=== PATIENT | male | born 1990 | race Caucasian/White ===

== ENCOUNTER 2016-11-04 07:10 | Emergency (ER) | payer SELFPAY ==
[2016-11-04 07:14] VITALS: RESP 16
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
--- NOTE | 2016-11-04 07:47 | XR ---
EXAMINATION TYPE: XR knee limited RT DATE OF EXAM: 11/04/2016 7:43 AM COMPARISON: NONE HISTORY: Pain TECHNIQUE: 2 views were obtained. FINDINGS: Joint spaces are preserved. Osseous structures are intact. No acute fracture seen. Remote tibial t ubercle avulsion fracture suspected. IMPRESSION: 1. No acute fracture or dislocation.
[2016-11-04 08:35] VITALS: BP 124/58; PULSE 50; TEMP 97.4
== END 2016-11-04 08:35 | disposition home or self-care (01) ==
LOC: EC 07:10
DX: S89.91XA Unspecified injury of right lower leg, initial encounter (principal); M76.891 Other specified enthesopathies of right lower limb, excluding foot; Z87.891 Personal history of nicotine dependence; Z88.0 Allergy status to penicillin; Z98.890 Other specified postprocedural states; X58.XXXA Exposure to other specified factors, initial encounter
CPT/HCPCS: 99283; 73560; L1830

== ENCOUNTER 2018-12-29 03:56 | Emergency (ER) | payer OTHER ==
[2018-12-29 04:04] VITALS: BP 133/87; RESP 16; TEMP 97.7
[2018-12-29] MEDS ORDERED: IPRATROPIUM-ALBUTEROL 3 ML NEB INHALATION STA (04:39)
[2018-12-29] MEDS ORDERED: predniSONE 20 MG TAB PO STA (04:39)
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
[2018-12-29 04:53] VITALS: PULSE 80
== END 2018-12-29 05:04 | disposition home or self-care (01) ==
LOC: EC 03:56
DX: J45.901 Unspecified asthma with (acute) exacerbation (principal); Z88.0 Allergy status to penicillin; Z91.013 Allergy to seafood; Z87.891 Personal history of nicotine dependence
CPT/HCPCS: 94640; 99284; J7512

== ENCOUNTER 2019-05-15 09:06 | Emergency (ER) | payer OTHER ==
[2019-05-15] MEDS ORDERED: IBUPROFEN 600 MG TAB PO STA (09:48)
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
--- NOTE | 2019-05-15 10:21 | XR ---
EXAMINATION TYPE: XR ankle complete 3 views RT, XR foot complete 3 views RT DATE OF EXAM: 05/15/2019 COMPARISON: NONE HISTORY: 29-year-old male with pain and swelling laterally after rolling ankle FINDINGS: Right ankle: There are a few small cystic densities below the lateral malleolus measuring 5 mm and 2 mm. No well-d efined donor site is identified. Ankle mortise otherwise appears congruent. Talar dome is intact. Cor ticated appearing ossific density anteriorly measures 5 mm. Small delineation to the Achilles tendon. Right foot: Type II accessory navicular. There is subtle lucency seen at the base of the fifth metatarsal on the AP and oblique views. IMPRESSION: 1. Right ankle: Age indeterminate bone fragments below the lateral malleolus suggesting avulsion frac tures mediated by the lateral ligamentous complex. Probably chronic. Correlate for any pinpoint tend erness here to exclude acute fractures here. 2. Right foot: Findings suspicious for a nondisplaced fracture at the base of the fifth metatarsal. 3. Right foot: Type II accessory navicular.
[2019-05-15 10:55] VITALS: BP 128/91; PULSE 60; RESP 12; TEMP 97.6
== END 2019-05-15 10:50 | disposition home or self-care (01) ==
LOC: EC 09:06
DX: S82.61XA Displaced fracture of lateral malleolus of right fibula, initial encounter for closed fracture (principal); S92.351A Displaced fracture of fifth metatarsal bone, right foot, initial encounter for closed fracture; Z87.891 Personal history of nicotine dependence; Z88.0 Allergy status to penicillin; Z91.013 Allergy to seafood; Z79.1 Long term (current) use of non-steroidal anti-inflammatories (NSAID); X50.9XXA Other and unspecified overexertion or strenuous movements or postures, initial encounter; Y93.67 Activity, basketball
CPT/HCPCS: 29515; 99283

== ENCOUNTER 2019-12-18 09:40 | Emergency (ER) | payer OTHER ==
[2019-12-18 09:55] VITALS: BP 132/82; RESP 18; TEMP 97.9
[2019-12-18] MEDS ORDERED: IPRATROPIUM-ALBUTEROL 3 ML NEB INHALATION STA (10:02)
[2019-12-18] MEDS ORDERED: predniSONE 50 MG TAB PO STA (10:03)
--- NOTE | 2019-12-18 10:16 | XR ---
EXAMINATION TYPE: XR chest 2V DATE OF EXAM: 12/18/2019 COMPARISON: 02/14/2016 HISTORY: Shortness of breath. History of asthma. TECHNIQUE: Frontal and lateral views of the chest are obtained. FINDINGS: There is no focal air space opacity, pleural effusion, or pneumothorax seen. Pulmonary art eries are prominent in size. Very mild peribronchial cuffing along the bronchus intermedius. The car diac silhouette size is within normal limits. The osseous structures are intact. IMPRESSION: 1. Very mild peribronchial cuffing along the bronchus intermedius. Consider bronchitis or reactive ai rway disease. 2. No focal consolidation to suggest pneumonia. 3. Prominence of the main pulmonary arteries, which may clinically correlate with pulmonary arterial hypertension.
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
[2019-12-18 10:29] VITALS: PULSE 60
== END 2019-12-18 10:53 | disposition home or self-care (01) ==
LOC: EC 09:40
DX: J45.901 Unspecified asthma with (acute) exacerbation (principal); Z88.0 Allergy status to penicillin; Z91.013 Allergy to seafood; Z87.891 Personal history of nicotine dependence
CPT/HCPCS: 99285; 94640; 71046; J7512

== ENCOUNTER 2020-01-01 20:27 | Emergency (ER) | payer OTHER ==
[2020-01-01 20:31] VITALS: BP 148/94; PULSE 70; RESP 20; TEMP 98.6
[2020-01-01] MEDS ORDERED: NEOMYCIN-POLYMYXIN-HC (3.5-10,000-10 MG) OTIC DROPS 10 ML BTL LEFT EAR STA (20:45)
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
== END 2020-01-01 21:12 | disposition home or self-care (01) ==
LOC: EC 20:27
DX: H60.92 Unspecified otitis externa, left ear (principal); J45.909 Unspecified asthma, uncomplicated; Z88.0 Allergy status to penicillin; Z91.013 Allergy to seafood; Z87.891 Personal history of nicotine dependence
CPT/HCPCS: 99282

== ENCOUNTER 2020-01-12 00:50 | Emergency (ER) | payer OTHER ==
[2020-01-12 01:00] VITALS: BP 143/83; PULSE 81; RESP 18; TEMP 98.5
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
== END 2020-01-12 01:17 | disposition home or self-care (01) ==
LOC: EC 00:50
DX: H60.92 Unspecified otitis externa, left ear (principal); J45.909 Unspecified asthma, uncomplicated; Z79.51 Long term (current) use of inhaled steroids; Z79.1 Long term (current) use of non-steroidal anti-inflammatories (NSAID); Z88.0 Allergy status to penicillin; Z91.013 Allergy to seafood; Z87.891 Personal history of nicotine dependence
CPT/HCPCS: 99282

== ENCOUNTER 2021-06-07 04:10 | Emergency (ER) | payer BC, OTHER ==
[2021-06-07 04:42] VITALS: BP 137/92; PULSE 61; RESP 20; TEMP 97.8
[2021-06-07] MEDS ORDERED: predniSONE 20 MG TAB PO STA (04:53)
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
== END 2021-06-07 05:05 | disposition home or self-care (01) ==
LOC: EC 04:10
DX: J45.901 Unspecified asthma with (acute) exacerbation (principal); Z87.891 Personal history of nicotine dependence; Z88.0 Allergy status to penicillin; Z91.013 Allergy to seafood
CPT/HCPCS: 99284; J7512

== ENCOUNTER 2021-09-12 06:13 | Emergency (ER) | payer BC, OTHER ==
[2021-09-12 06:27] VITALS: BP 146/98; PULSE 61; RESP 16; TEMP 97.8
--- NOTE | 2021-09-12 06:51 | XR ---
EXAMINATION TYPE: XR foot complete RT DATE OF EXAM: 09/12/2021 CLINICAL HISTORY: Pain worse laterally. TECHNIQUE: Frontal, lateral, and oblique images of the right foot are obtained. COMPARISON: Prior right foot x-ray May 15, 2019 FINDINGS: There is no acute fracture/dislocation evident in the right foot. The joint spaces in the right foot appear within normal limits. Unfused apophysis or accessory ossicle medial base of navicu lar bone redemonstrated. The overlying soft tissue appears unremarkable. IMPRESSION: As above. No acute findings are evident.
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
== END 2021-09-12 07:57 | disposition home or self-care (01) ==
LOC: EC 06:13
DX: S93.601A Unspecified sprain of right foot, initial encounter (principal); M72.2 Plantar fascial fibromatosis; J45.909 Unspecified asthma, uncomplicated; Z87.891 Personal history of nicotine dependence; Z88.0 Allergy status to penicillin; Z91.013 Allergy to seafood; X58.XXXA Exposure to other specified factors, initial encounter; Y99.0 Civilian activity done for income or pay
CPT/HCPCS: 99283

== ENCOUNTER 2021-10-21 08:55 | Emergency (ER) | payer BC ==
[2021-10-21] MEDS ORDERED: ACETAMINOPHEN TAB 500 MG TAB PO STA (09:09)
[2021-10-21] MEDS ORDERED: ONDANSETRON ODT 4 MG TAB PO STA (09:25)
[2021-10-21] MEDS ORDERED: ONDANSETRON 4 MG ODT STARTER PACK 2 TAB BTL PO STA (09:25)
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
[2021-10-21 10:22] VITALS: BP 122/80; PULSE 94; RESP 18; TEMP 98.4
== END 2021-10-21 10:27 | disposition home or self-care (01) ==
LOC: EC 08:55
DX: U07.1 COVID-19 (principal); J45.909 Unspecified asthma, uncomplicated; Z87.891 Personal history of nicotine dependence; Z88.0 Allergy status to penicillin; Z91.013 Allergy to seafood
CPT/HCPCS: 87635; 99284; S0119

== ENCOUNTER 2022-01-27 06:04 | Emergency (ER) | payer BC, OTHER ==
[2022-01-27 06:17] VITALS: BP 135/88; PULSE 66; RESP 18; TEMP 97.8
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
== END 2022-01-27 07:05 | disposition home or self-care (01) ==
LOC: EC 06:04
DX: J98.01 Acute bronchospasm (principal); Z87.891 Personal history of nicotine dependence; Z88.0 Allergy status to penicillin
CPT/HCPCS: 99284

== ENCOUNTER 2022-04-16 06:03 | Emergency (ER) | payer BC, OTHER ==
[2022-04-16 06:33] VITALS: BP 123/87; TEMP 97.9
[2022-04-16] MEDS ORDERED: IPRATROPIUM-ALBUTEROL 3 ML NEB INHALATION STA (06:47)
[2022-04-16] MEDS ORDERED: predniSONE 50 MG TAB PO STA (06:49)
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
--- NOTE | 2022-04-16 07:17 | XR ---
EXAMINATION TYPE: XR chest 2V DATE OF EXAM: 04/16/2022 COMPARISON: 12/18/2019 HISTORY: 31-year-old male with wheezing and shortness of breath TECHNIQUE: PA and lateral views FINDINGS: The cardiomediastinal silhouette, aorta, and pulmonary vasculature are within normal limits. Lungs an d pleural spaces are clear. IMPRESSION: No acute cardiopulmonary process.
[2022-04-16 07:52] VITALS: PULSE 78; RESP 16
== END 2022-04-16 07:52 | disposition home or self-care (01) ==
LOC: EC 06:03
DX: J45.901 Unspecified asthma with (acute) exacerbation (principal); Z87.891 Personal history of nicotine dependence; Z79.51 Long term (current) use of inhaled steroids
CPT/HCPCS: 94640; 87502; 87635; 71046; 99285; J7512

== ENCOUNTER 2022-12-28 07:36 | Emergency (ER) | payer BC, OTHER ==
[2022-12-28] MEDS ORDERED: IBUPROFEN 600 MG TAB PO STA (07:54)
[2022-12-28] MEDS ORDERED: ONDANSETRON ODT 4 MG TAB PO STA (07:54)
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
[2022-12-28 09:19] VITALS: BP 130/83; PULSE 83; TEMP 97.9
[2022-12-28 09:21] VITALS: RESP 18
== END 2022-12-28 09:18 | disposition home or self-care (01) ==
LOC: EC 07:36
DX: U07.1 COVID-19 (principal); J45.909 Unspecified asthma, uncomplicated; Z79.899 Other long term (current) drug therapy; Z87.891 Personal history of nicotine dependence; Z88.0 Allergy status to penicillin; Z91.018 Allergy to other foods; Z20.822 Contact with and (suspected) exposure to COVID-19
CPT/HCPCS: 87502; 87635; 99283

== ENCOUNTER 2025-02-13 08:51 | Emergency (ER) | payer BC, OTHER ==
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
[2025-02-13] MEDS: methylPREDNISolone SOD SUCCI 125 MG/2 ML VIAL IM ONE (09:24)
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
[2025-02-13] MEDS: IPRATROPIUM-ALBUTEROL 3 ML NEB INHALATION STA (10:14)
[2025-02-13 11:07] VITALS: BP 147/69; PULSE 77; RESP 16; TEMP 98
== END 2025-02-13 11:07 | disposition home or self-care (01) ==
LOC: EC 08:51
DX: J45.901 Unspecified asthma with (acute) exacerbation (principal); Z88.0 Allergy status to penicillin; Z87.891 Personal history of nicotine dependence; Z91.013 Allergy to seafood; Z79.899 Other long term (current) drug therapy
CPT/HCPCS: 94640; 71046; 99285; 96372; J2919